=== PATIENT | male | born 1955 | race Caucasian/White ===

== ENCOUNTER 2023-12-21 10:19 | Outpatient (CLI) | payer MEDICARE, SELFPAY ==
--- NOTE | ~2023-12-21 | MR_ITS ---
MRI of the lumbar spine Clinical History: Radiculopathy Technique: Axial T2-weighted images, and sagittal T1-weighted, T2-weighted, and T2 fat-sat images wer e acquired. Findings: No fracture evident. There is minimal grade 1 retrolisthesis of L2 over L3, and of L3 over L4. No suspicious bone marrow signal abnormality seen. There is reactive marrow signal changes about the L5-S1 disc space. At L1-L2, there is minimal disc bulge and mild facet arthropathy. No central canal stenosis or neural foraminal narrowing. At L2-L3, there is advanced degenerative disc narrowing. There is mild disc bulge and moderate facet arthropathy. No central canal stenosis. There is moderate right neural foraminal narrowing. Left neur al foramen preserved. L3-L4, there is mild degenerative disc narrowing. There is mild diffuse disc bulge with moderate face t arthropathy. No central canal stenosis. There is moderate bilateral neural foraminal narrowing, lef t worse than right. At L4-L5, there is mild disc bulge with advanced facet arthropathy. No central canal stenosis. There is moderate left neural foraminal narrowing and mild right neural foraminal narrowing. At L5-S1, there is moderate degenerative disc narrowing. There is mild disc bulge and moderate facet arthropathy. There is moderate left neural foraminal narrowing, and mild right neural foraminal narro wing. No central canal stenosis. Paravertebral soft tissues are unremarkable. Impression: Moderate degenerative spondylosis, as above. Reviewed, dictated and finalized at [facility]. Impression: Moderate degenerative spondylosis, as above.
== END 2023-12-21 10:20 ==
LOC: MICIMG 10:21
PROVIDERS: PCP Nurse Practitioner Family; Visit Provider Nurse Practitioner Family
DX: M47.26 Other spondylosis with radiculopathy, lumbar region (principal)
CPT/HCPCS: 72148